=== PATIENT | male | born 1975 | race Caucasian/White ===

== ENCOUNTER 2018-01-17 11:50 | Emergency (ER) | payer SELFPAY ==
--- NOTE | 2018-01-17 12:04 | ED Physician Documentation ---
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 Ankle twisted on the initial fall and this is hurting/ swollen. He has pain right lateral ribs/chest and upper right abd that has persisted overnight and into today. Hurts with movement and breathing. Denies injury to head/neck.) Timing - onset: Last night Timing - details: Abrupt onset, Still present Quality: Pain, Sharp, Aching Worsened by: Moving, Palpating, Other (deep breathing hurts to right chest ( lower)) Associated symtptoms: No: Weakness, Numbness Contributing factors: No: Anticoagulated, Other injury Where injury occured: Work (works for [employer] and is here for just the weekend ; they leave tonight for next location.) Similar symptoms before: Has not had sx before Recently seen: Not recently seen Review of Systems Constitutional: denies: Fever, Chills Nose: denies: Rhinorrhea / runny nose, Congestion Cardiac: denies: Palpitations, Pedal edema, Calf pain GI: reports: Abdominal Pain (right upper abd since fall.). denies: Nausea, Vomiting, Diarrhea Skin: denies: Rash, Abrasion (s), Laceration (s) Neurologic: denies: Generalized weakness, Focal weakness, Numbness, Near syncope , Altered mental status, Head injury PD PAST MEDICAL HISTORY - Past Medical History Cardiovascular: None Respiratory: None Neuro: None Endocrine/Autoimmune: None - Past Surgical History Past Surgical History: No - Present Medications Home Medications: Ambulatory Orders Medication Instructions Recorded Confirmed HYDROcod/ACETAM 5/325 [Marion 5/325] 1 - 2 tab PO Q6H PRN #25 tablet 01/17/18 Naproxen 375 mg PO BID #20 tablet 01/17/18 - Allergies Allergies/Adverse Reactions: Allergies Allergy/AdvReac Type Severity Reaction Status Date / Time No Known Drug Allergies Allergy Verified 01/17/18 11:56 - Living Situation Living Situation: reports: Alone - Social History Does the pt smoke?: Yes Does the pt drink ETOH?: Yes Does the pt have substance abuse?: No - Family History Family history: denies: Venous thromboembolism PD ED PE NORMAL - Vitals Vital signs reviewed: Yes - General General: Alert and oriented X 3, Well developed/nourished, Other (apears in pain , with some splinted breathing on right) - HEENT HEENT: Atraumatic, Pharynx benign - Neck Neck: Supple, no meningeal sign, No bony TTP, No adenopathy - Cardiac Cardiac: RRR, No murmur - Respiratory Respiratory: Clear bilaterally, Other (right lateral chestwall without bruising nor crepitance. Very tender to palpation though at lateral lower ribs from about 9-12, and also tender RUQ area of abd. Some right flank pain to palpation. No spinal tenderness to percussion nor palpation. ) - Abdomen Abdomen: Normal bowel sounds, Soft, Non distended, No organomegaly, Other ( tender RUQ and right lateral abd. ) - Back Back: No spinal TTP, Other (some right DVA tenderness. ) - Derm Derm: Normal color, Warm and dry, No rash - Extremities Extremities: No edema, No calf tenderness / cord, Other (right lateral ankle with swelling and tenderness. No defromity. Able to walk on it. Pain but no laxity on inversion stress. Calf not tender. ) - Neuro Neuro: Alert and oriented X 3, No motor deficit, Normal speech Results - Vitals Vitals: Vital Signs - 24 hr 01/17/18 01/17/18 01/17/18 11:53 13:29 14:10 Temperature 37.0 C Heart Rate 80 88 65 Respiratory 26 H 17 17 Rate Blood Pressure 120/59 L 122/73 O2 Saturation 98 100 100 01/17/18 17:01 Temperature Heart Rate 59 L Respiratory 16 Rate Blood Pressure 120/64 O2 Saturation 100 Oxygen O2 Source Room air - Labs Labs: Laboratory Tests 01/17/18 01/17/18 12:50 12:50 WBC 15.4 H RBC 4.86 Hgb 14.7 Hct 44.2 MCV 91.0 MCH 30.2 MCHC 33.2 RDW 14.2 Plt Count 338 MPV 8.8 Neut # 11.4 H Lymph # 1.9 Charles # 1.9 H Eos # 0.1 Baso # 0.1 Absolute Nucleated RBC 0.01 Nucleated RBC % 0.1 Sodium 137 Potassium 3.4 L Chloride 100 L Carbon Dioxide 27 Anion Gap 10.0 BUN 9 Creatinine 0.7 Estimated GFR (MDRD) 125 Glucose 101 H Calcium 9.8 Total Bilirubin 0.6 AST 19 ALT 19 Alkaline Phosphatase 75 Total Protein 8.8 H Albumin 4.6 Globulin 4.2 Albumin/Globulin Ratio 1.1 Lipase 15 L - Rads (name of study) chest Radiology: Prelim report reviewed, EMP read contemporaneously (no acute injury seen) CT chest/abd/pelvis with contrast Radiology: Prelim report reviewed, Discussed with rads (some interstitial marking lower right, c/w contusion or atelectasis. No fractures nor PTX. No solid organ injury on abdomen. There is a small subsegmental PE noted lower right lung. ), EMP read contemporaneously PD MEDICAL DECISION MAKING - ED course Complexity details: reviewed results (talked with Radiologist - who sees small subsegmental PE, but the finding is not c/w symptoms and mechanism. Patient had not had leg swelling nor chest pain prior to fall/injury. The chest findings are c/w atelectasis from splinted breathing and lung contusion. U/S of the right leg does not show any DVT (that was the injured ankle, so consider some underlying DVT would not be clinically evident perhaps). So I talked with patient and I feel that it is a false positive finding and would be supported with EM literature studies that show 5-10% false positive rate for segmental/ subsegmental PEs and it does not fit into the clinical context. I would feel unsafe giving anticoag to someone with lung contusion as well. ), considered differential (concern for PTX, effusion, rib fractures, liver injury, and renal injury based on injury and pain location. CXR done to ensure no acute intervention needed while getting IV and pain meds established. CT then done with vitals stable. ), d/w patient Departure - Departure Disposition: 01 Home, Self Care Clinical Impression: Fall from slip, trip, or stumble Qualifiers: Encounter type: initial encounter Qualified Code(s): W01.0XXA - Fall on same level from slipping, tripping and stumbling without subsequent striking against object, initial encounter Right ankle sprain Qualifiers: Encounter type: initial encounter Involved ligament of ankle: other ligament Qualified Code(s): S93.491A - Sprain of other ligament of right ankle, initial encounter Chest wall contusion Qualifiers: Encounter type: initial encounter Laterality: right Qualified Code(s): S20.211A - Contusion of right front wall of thorax, initial encounter Contusion of lung Qualifiers: Encounter type: initial encounter Laterality: right Qualified Code(s): S27.321A - Contusion of lung, unilateral, initial encounter Condition: Stable Record reviewed to determine appropriate education?: Yes Instructions: ED Contusion Chest Wall, ED Sprain Ankle Prescriptions: HYDROcod/ACETAM 5/325 [Marion 5/325] 1 - 2 tab PO Q6H PRN #25 tablet PRN Reason: Pain Naproxen 375 mg PO BID #20 tablet Comments: Using ankle brace to support the ankle most of the time and certainly when you are up and walking for the next 1-2 weeks until fully better. Use naproxen or ibuprofen anti-inflammatories twice daily for the next 7-10 days and add Tylenol or hydrocodone if needed for pain. Rest with minimal work for the next 3 or 4 days due to the injuries. The CT showed some bruising of the lung but no obvious fractures or internal bleeding around the chest or abdomen organs. They did report seeing a small blood clot in the lung but that does not really make sense coming from the injury and is a false positive reading about 15 or 20 % of the time. If you do have increasing pain, trouble breathing, coughing blood or other concerns, then recheck in the next town that you are working and they can reduce some of the studies if needed. However if you have steady improvement over the next several days to week or so the knot would be appropriate and no follow-up is needed per se. Forms: Activity restrictions
[2018-01-17] MEDS ORDERED: ONDANSETRON 4 MG/2 ML VIAL IVP STA (12:31)
[2018-01-17] MEDS ORDERED: MORPHINE 2 MG/ML SYRINGE IVP STA ×2 (12:32→14:53)
[2018-01-17 12:58] LABS: BASOPHILS # (AUTO) 0.1 10^3/uL (0.0-0.1); BASOPHILS % (AUTO) 0.6 %; EOSINOPHILS # (AUTO) 0.1 10^3/uL (0.0-0.7); EOSINOPHILS % (AUTO) 0.4 %; HGB - HEMOGLOBIN 14.7 g/dL (14.0-18.0); LYMPHOCYTES # (AUTO) 1.9 10^3/uL (1.5-3.5); LYMPHOCYTES % (AUTO) 12.2 %; MEAN CORPUSCULAR HEMOGLOBIN 30.2 pg (27.0-31.0); MEAN CORPUSCULAR HGB CONC 33.2 g/dL (32.0-36.0); MEAN PLATELET VOLUME 8.8 fL (7.4-11.4); MONOCYTES # (AUTO) 1.9 10^3/uL (0.0-1.0); MONOCYTES % (AUTO) 12.6 %; NEUTROPHILS # (AUTO) 11.4 10^3/uL (1.5-6.6); NEUTROPHILS % (AUTO) 74.2 %; PLT - PLATELET COUNT 338 10^3/uL (130-450); RED BLOOD COUNT 4.86 10^6/uL (4.70-6.10); RED CELL DISTRIBUTION WIDTH 14.2 % (12.0-15.0); WHITE BLOOD COUNT 15.4 x10^3/uL (4.8-10.8)
[2018-01-17 13:07] LABS: ALBUMIN 4.6 g/dL (3.2-5.5); ALBUMIN/GLOBULIN RATIO 1.1 (1.0-2.2); BILIRUBIN,TOTAL 0.6 mg/dL (0.2-1.0); CALCIUM 9.8 mg/dL (8.5-10.3); CREATININE 0.7 mg/dL (0.6-1.2); TOTAL PROTEIN 8.8 g/dL (6.7-8.2)
--- NOTE | 2018-01-17 13:11 | XRAY Report ---
EXAM: CHEST RADIOGRAPHY ONE VIEW EXAM DATE: 01/17/2018. CLINICAL HISTORY: Fell. Right chest pain. COMPARISON: None. TECHNIQUE: AP upright portable chest at 1237. FINDINGS: Lungs/Pleura: Normal vasculature. Small linear opacity in the lower right lung. The lungs are otherwi se clear. No pleural fluid or pneumothorax. Mediastinum: Normal cardiac and mediastinal contours. Bones: Normal. IMPRESSION: Small focus of diskoid atelectasis or scar of the lower right lung. Otherwise normal exam ination. [facility] Referring Provider Line: [phone] SITE ID: [id number]
[2018-01-17] MEDS ORDERED: KETOROLAC 60 MG/2 ML VIAL IVP STA (13:37)
[2018-01-17] MEDS ORDERED: SODIUM CHLORIDE 0.9% 1,000 ML IV ONE (13:37)
[2018-01-17] MEDS ORDERED: IOPAMIDOL-300 100 ML VIAL ONE (13:51)
[2018-01-17] MEDS ORDERED: IOPAMIDOL-300 100 ML VIAL IVP ONE (14:15)
--- NOTE | 2018-01-17 14:34 | CT Report ---
EXAM: CT CHEST EXAM DATE: 01/17/2018 02:14 PM. CLINICAL HISTORY: Fall with right chest/abd pain. COMPARISONS: None. TECHNIQUE: Routine helical CT imaging was performed through the chest. IV contrast: 100 cc Isovue 300 IV. Reconstructions: Coronal and sagittal. In accordance with CT protocol optimization, one or more of the following dose reduction techniques w ere utilized for this exam: automated exposure control, adjustment of mA and/or KV based on patient s ize, or use of iterative reconstructive technique. FINDINGS: Lungs/Pleura: There are mild peripheral consolidative and groundglass opacities within the right lowe r lobe. There is a trace right pleural effusion. No left-sided pleural effusion. Negative for pneumot horax. Trachea and central airways are patent. Mediastinum: The heart size is normal. There is no pericardial effusion. The main pulmonary artery is normal in size. There is a segmental and subsegmental pulmonary embolism in the posterior right uppe r lobe. There is no central pulmonary embolism. Bones: Unremarkable. Visualized Abdomen: Dictated in separate report. Other: None. IMPRESSION: 1. Positive for segmental and subsegmental posterior right lower lobe pulmonary embolism. 2. Trace right pleural effusion. Right lower lobe airspace disease is probably related to pulmonary e mbolism and may reflect peripheral atelectasis or infarct. [facility] The above findings were discussed with Andre Rivera by Dr. Jesse Rico at 14:32 hrs on 12/21 06/08. Referring Provider Line: [phone] SITE ID: [id number]
--- NOTE | 2018-01-17 14:52 | CT Report ---
EXAM: CT ABDOMEN AND PELVIS EXAM DATE: 01/17/2018 02:14 PM. CLINICAL HISTORY: Fall with right chest/abd pain. COMPARISONS: None. TECHNIQUE: Routine helical CT imaging was performed through the abdomen and pelvis. IV contrast: 100 cc Isovue-300 IV. Enteric contrast: No. Reconstructions: Coronal and sagittal. In accordance with CT protocol optimization, one or more of the following dose reduction techniques w ere utilized for this exam: automated exposure control, adjustment of mA and/or KV based on patient s ize, or use of iterative reconstructive technique. FINDINGS: Lung Bases: Dictated in separate report. Liver: Normal. No masses. Gallbladder/Bile Ducts: Unremarkable. Spleen: There is a circumscribed low density round lesion in the spleen measuring 1.5 cm in diameter which is of doubtful clinical significance. Possible cyst. Pancreas: Normal. Adrenal Glands: Normal. Kidneys: Normal. No masses or hydronephrosis. Peritoneal Cavity/Bowel: Normal. No free fluid, free air or adenopathy. No masses or acute inflammato ry process. The appendix is well visualized and normal. Pelvic Organs: Normal. The bladder and visualized pelvic organs are within normal limits. Vasculature: No aneurysms or other significant abnormality. Bones: No significant abnormality. Other: None. IMPRESSION: 1. No acute or significant abnormality within the abdomen or pelvis. [facility] Referring Provider Line: [phone] SITE ID: [id number]
--- NOTE | 2018-01-17 16:26 | Ultrasound Preliminary Report ---
Exam: US DUPLEX EXT VEINS RIGHT IMPRESSION: Limited visualization of the calf veins. No evidence for deep venous thrombosis. [facility] SITE ID: [id number]
--- NOTE | 2018-01-17 16:26 | Ultrasound Report ---
EXAM: RIGHT LOWER EXTREMITY VENOUS ULTRASOUND EXAM DATE: 01/17/2018 04:12 PM. CLINICAL HISTORY: Right leg pain. COMPARISON: None. TECHNIQUE: Real-time sonographic vascular imaging was performed by the mechanical design engineer products through the lower extremity utilizing both color-flow and Doppler spectral analysis. Multiple guest service representative static maritza ges were saved for review. FINDINGS: Common Femoral Vein (CFV): Normal. CFV-GSV Junction: Normal. Profunda Femoral Vein (PFV): Normal. Femoral Vein (FV) Prox: Normal. Femoral Vein (FV) Mid: Normal. Femoral Vein (FV) Dist: Normal. Popliteal Vein: Normal. Posterior Tibial Veins: Normal as visualized. Peroneal Veins: Normal as visualized. Other: None. IMPRESSION: Limited visualization of the calf veins. No evidence for deep venous thrombosis. [facility] Referring Provider Line: [phone] SITE ID: [id number]
[2018-01-17 17:02] VITALS: BP 120/64
== END 2018-01-17 18:00 | disposition home or self-care (01) ==
LOC: ED 11:50
DX: S93.491A Sprain of other ligament of right ankle, initial encounter (principal); S20.211A Contusion of right front wall of thorax, initial encounter; S27.321A Contusion of lung, unilateral, initial encounter; W10.8XXA Fall (on) (from) other stairs and steps, initial encounter; Y92.89 Other specified places as the place of occurrence of the external cause; Y99.0 Civilian activity done for income or pay
CPT/HCPCS: 36415; 71045; 71260; 74177; 80053; 83690; 85025; 93971; 96361; 96374; 96375; 96376; 99283; 99284; J2270; Q9967